=== PATIENT | male | born 1955 | race Caucasian/White ===

== ENCOUNTER → 2022-11-09 | Outpatient (CLI) | payer OTHER | END | disposition home or self-care (01) | LOC: LAB SHORT 15:40 → LAB 15:40 | DX: Z51.81 Encounter for therapeutic drug level monitoring (principal); Z79.891 Long term (current) use of opiate analgesic | CPT/HCPCS: G0480 ==

== ENCOUNTER 2025-04-16 15:06 | Emergency (ER) | payer OTHER ==
[~2025-04-16] VITALS: Ht 188 cm; Wt 149.7 kg
[~2025-04-16 15:06] MED LIST: ACET500 PO; ALBU90OI INH; ALLEGRA ALLERG180 MG PO; AMLO5 PO; ATOR20 PO; BELBUCA750 MCG BC; BUPR150ER PO; DOCU100 PO; DULERA 100 MCG/13 GM; DULO60 PO; INSULANI SC; JARDIANCE25 MG PO; LIDOCAINE1 EACH TOP; LOSA50 PO; METF500C PO; METO50ER PO; MONT10T PO; NALOXONE H0.4 MG/1 M; OZEMPIC1 MG/0.72; PREG300 PO; TAMS.4ER PO; WEGOVY2.4 MG/0.7 SQ; ZOLP10 PO
[2025-04-16 16:00] VITALS: BP 112/69
[2025-04-16] MEDS ORDERED: PAXLOVID 300-11 EAC1 PO (18:14)
== END 2025-04-16 18:27 | disposition home or self-care (01) ==
LOC: ER 15:06
DX: U07.1 COVID-19 (principal); S16.1XXA Strain of muscle, fascia and tendon at neck level, initial encounter; Z79.4 Long term (current) use of insulin; Z79.899 Other long term (current) drug therapy; Z79.84 Long term (current) use of oral hypoglycemic drugs; E11.40 Type 2 diabetes mellitus with diabetic neuropathy, unspecified; E78.5 Hyperlipidemia, unspecified; G47.33 Obstructive sleep apnea (adult) (pediatric); M19.90 Unspecified osteoarthritis, unspecified site; F43.10 Post-traumatic stress disorder, unspecified; W22.8XXA Striking against or struck by other objects, initial encounter
CPT/HCPCS: 99283